=== PATIENT | female | born 1975 | race Caucasian/White ===

== ENCOUNTER 2023-10-10 06:32 | Day surgery (SDC) | payer BC, OTHER ==
[~2023-10-10 06:32] MED LIST: Clindamycin Phosphate in D5W 600 MG in Premix Bag 1 BAG IV ONE; Lactated Ringers 1,000 ML IV SCH; Sodium Chloride 0.9% 10 ML Syringe FLUSH PRN; Sodium Chloride 0.9% 2.5 ML Syringe FLUSH PRN; Sodium Chloride 0.9% 20 ML SDV IV PRN
[2023-10-10] MEDS ORDERED: Ropivacaine 0.5% 5 MG/ML 30 ML SDV ONE (07:28)
[2023-10-10] MEDS ORDERED: EPINEPHrine 1 MG/1 ML Amp ONE (07:28)
[2023-10-10] MEDS ORDERED: Bupivacaine 0.25% 30 ML SDV ONE (07:28)
[2023-10-10] MEDS ORDERED: Rocuronium Bromide 50 MG/5 ML Syringe ONE (07:33)
[2023-10-10] MEDS ORDERED: Ondansetron 4 MG/2 ML SDV ONE (07:33)
[2023-10-10] MEDS ORDERED: fentaNYL 100 MCG/2 ML SDV ONE ×2 (07:33→08:43)
[2023-10-10] MEDS ORDERED: Ketorolac 30 MG/ML SDV ONE (07:33)
[2023-10-10] MEDS ORDERED: Propofol 200 MG/20 ML SDV ONE (07:33)
[2023-10-10] MEDS ORDERED: Lidocaine 2% 5 ML SDV ONE (07:33)
[2023-10-10] MEDS ORDERED: Sugammadex Sodium 200 MG/2 ML VIAL ONE (07:33)
[2023-10-10] MEDS ORDERED: Dexamethasone 4 MG/ML 5 ML MDV ONE (07:33)
[2023-10-10] MEDS ORDERED: Ketamine 500 mg/10 ML MDV ONE (07:37)
[2023-10-10] MEDS ORDERED: Indocyanine Green 25 MG SDV ONE (07:39)
[2023-10-10] MEDS ORDERED: Bupivacaine 0.5% 30 ML SDV ONE (08:20)
[2023-10-10] MEDS ORDERED: Morphine 2 MG/ML SYRINGE IVPUSH PRN (08:31)
[2023-10-10] MEDS ORDERED: Albuterol 0.083% 2.5 MG/3 ML Neb Soln NEB PRN (08:31)
[2023-10-10] MEDS ORDERED: Ondansetron 4 MG/2 ML SDV IVPUSH PRN (08:31)
[2023-10-10] MEDS ORDERED: Metoclopramide 10 MG/2 ML SDV IVPUSH PRN (08:31)
[2023-10-10] MEDS ORDERED: fentaNYL 50 MCG/ML SDV IVPUSH PRN (08:31)
[2023-10-10] MEDS ORDERED: droPERidol 5 MG/2 ML SDV IVPUSH PRN (08:31)
[2023-10-10] MEDS ORDERED: HYDROmorphone 1 MG/ML Syringe IVPUSH PRN (08:31)
[2023-10-10] MEDS ORDERED: Naloxone 0.4 MG/ML SDV IVPUSH PRN (08:31)
== END 2023-10-10 11:10 | disposition home or self-care (01) ==
LOC: MW.SDS 06:32
PROVIDERS: ATTEND Surgery
DX: K81.1 Chronic cholecystitis (principal); K82.8 Other specified diseases of gallbladder; I10 Essential (primary) hypertension; E78.00 Pure hypercholesterolemia, unspecified; K21.9 Gastro-esophageal reflux disease without esophagitis; E66.9 Obesity, unspecified; Z68.33 Body mass index [BMI] 33.0-33.9, adult; Z79.899 Other long term (current) drug therapy; Z88.2 Allergy status to sulfonamides; Z88.0 Allergy status to penicillin
CPT/HCPCS: 00790; 64488; 82947; J0171; J0665; J0736; J1100; J1885; J2405; J2704; J2795; J3010; J3490; J7120